=== PATIENT | male | born 1945 | race Caucasian/White ===

== ENCOUNTER → 2020-10-29 | Outpatient (CLI) | payer MEDICARE, BC ==
[~2020-10-29] MED LIST: CEPH500 PO; HYDACE10B PO
[2020-10-29 16:57] LABS: CHOL/HDL RATIO 3.5; Cholesterol 201 mg/dL (50-200); Free Thyroxine 1.12 ng/dL (0.70-1.60); HDL Cholesterol 57 mg/dL (>39); LDL/HDL RATIO 2.1; Low Density Lipoprotein Chol 119 mg/dL (0-110); Triglycerides 127 mg/dL (30-160); Very Low Density Lipoprot Chol 25 mg/dL (6-32)
== END ==
LOC: LAB SHORT 13:44
PROVIDERS: Hospitalist
DX: Z12.5 Encounter for screening for malignant neoplasm of prostate (principal); E03.9 Hypothyroidism, unspecified; I10 Essential (primary) hypertension
CPT/HCPCS: 80061; 84439; 84443; G0103

== ENCOUNTER → 2021-11-25 | Outpatient (CLI) | payer MEDICARE, BC ==
[2021-11-25 16:52] LABS: BASOPHILS ABSOLUTE AUTO 0.11 K/mm3 (0.00-0.23); BASOPHILS PERCENT AUTO 2 % (0-2); EOSINOPHILS ABSOLUTE AUTO 0.31 K/mm3 (0.00-0.68); EOSINOPHILS PERCENT AUTO 4 % (0-6); Hematocrit 44.5 % (37.0-53.0); Hemoglobin 15.5 g/dL (13.5-17.5); IMMATURE GRAN ABSOLUTE AUTO 0.07 K/mm3 (0.00-0.10); IMMATURE GRAN PERCENT AUTO 1 % (0-1); LYMPHOCYTES ABSOLUTE AUTO 2.53 K/mm3 (0.84-5.20); LYMPHOCYTES PERCENT AUTO 35 % (21-46); MONOCYTES ABSOLUTE AUTO 0.62 K/mm3 (0.16-1.47); MONOCYTES PERCENT AUTO 9 % (4-13); Mean Corpuscular HGB 31.7 pg (26.0-34.0); Mean Corpuscular HGB Conc 34.8 g/dL (31.5-36.5); Mean Corpuscular Volume 91 fL (80-100); Mean Platelet Volume 10.1 fL (9.1-12.4); NEUTROPHILS ABSOLUTE AUTO 3.68 K/mm3 (1.96-9.15); NEUTROPHILS PERCENT AUTO 50 % (41-73); Platelet Count 290 K/mm3 (150-400); RDW Coefficient Variation 12.6 % (11.7-14.2); RDW Standard Deviation 41.5 fL (35.1-46.3); Red Blood Cell Count 4.89 M/mm3 (4.30-5.90); White Blood Cell Count 7.32 K/mm3 (4.00-11.30)
[2021-11-25 19:40] LABS: Alanine Aminotransfer (ALT/SGP 38 U/L (12-78); Albumin, Blood 3.5 g/dL (3.4-5.0); Albumin/Globulin Ratio 1.1 (0.8-1.8); Alk Phos 75 U/L (50-136); Anion Gap 3 mmol/L (6-16); Aspartate Aminotrans (AST/SGOT 22 U/L (12-37); Bilirubin, Total 0.7 mg/dL (0.1-1.0); Blood Urea Nitrogen 17 mg/dL (8-24); Bun/Creatinine Ratio 16.2 (12.0-20.0); CHOL/HDL RATIO 3.7; CO2, Blood 28 mmol/L (21-32); Calcium, Blood 8.6 mg/dL (8.5-10.1); Chloride, Blood 106 mmol/L (98-108); Cholesterol 224 mg/dL (50-200); Creatinine, Blood 1.05 mg/dL (0.60-1.20); Globulin, Blood 3.3 g/dL (2.2-4.0); Glomerular Filtration Rate >60 (60-); Glucose, Blood 148 mg/dL (70-99); HDL Cholesterol 61 mg/dL (>39); LDL/HDL RATIO 2.3; Low Density Lipoprotein Chol 138 mg/dL (0-110); Potassium, Blood 4.4 mmol/L (3.5-5.5); Sodium, Blood 137 mmol/L (136-145); Total Protein, Blood 6.8 g/dL (6.4-8.2); Triglycerides 125 mg/dL (30-160); Very Low Density Lipoprot Chol 25 mg/dL (6-32)
[2021-11-25 19:42] LABS: Free Thyroxine 1.05 ng/dL (0.70-1.60); Triiodothyronine, Free 2.74 pg/mL (2.18-3.98)
== END | disposition home or self-care (01) ==
LOC: LAB SHORT 15:16
PROVIDERS: Hospitalist
DX: Z12.5 Encounter for screening for malignant neoplasm of prostate (principal); E03.9 Hypothyroidism, unspecified; I10 Essential (primary) hypertension
CPT/HCPCS: 80053; 80061; 84439; 84443; 84481; 85025; G0103

== ENCOUNTER 2022-10-09 15:15 | Emergency (ER) | payer MEDICARE, BC ==
[~2022-10-09] VITALS: Ht 170.2 cm; Wt 99.8 kg
[2022-10-09 15:57] LABS: BASOPHILS ABSOLUTE AUTO 0.06 K/mm3 (0.00-0.23); BASOPHILS PERCENT AUTO 0 % (0-2); EOSINOPHILS ABSOLUTE AUTO 0.11 K/mm3 (0.00-0.68); EOSINOPHILS PERCENT AUTO 1 % (0-6); Hematocrit 41.7 % (37.0-53.0); Hemoglobin 15.2 g/dL (13.5-17.5); IMMATURE GRAN ABSOLUTE AUTO 0.08 K/mm3 (0.00-0.10); IMMATURE GRAN PERCENT AUTO 1 % (0-1); LYMPHOCYTES ABSOLUTE AUTO 2.38 K/mm3 (0.84-5.20); LYMPHOCYTES PERCENT AUTO 16 % (21-46); MONOCYTES ABSOLUTE AUTO 1.18 K/mm3 (0.16-1.47); MONOCYTES PERCENT AUTO 8 % (4-13); Mean Corpuscular HGB 31.7 pg (26.0-34.0); Mean Corpuscular HGB Conc 36.5 g/dL (31.5-36.5); Mean Corpuscular Volume 87 fL (80-100); Mean Platelet Volume 9.5 fL (9.1-12.4); NEUTROPHILS ABSOLUTE AUTO 10.72 K/mm3 (1.96-9.15); NEUTROPHILS PERCENT AUTO 74 % (41-73); Platelet Count 307 K/mm3 (150-400); RDW Coefficient Variation 12.4 % (11.7-14.2); RDW Standard Deviation 39.4 fL (35.1-46.3); White Blood Cell Count 14.53 K/mm3 (4.00-11.30)
[2022-10-09 16:19] LABS: Albumin, Blood 3.3 g/dL (3.4-5.0); Albumin/Globulin Ratio 0.7 (0.8-1.8); Bilirubin, Total 0.8 mg/dL (0.1-1.0); Bun/Creatinine Ratio 27.7 (12.0-20.0); Calcium, Blood 8.6 mg/dL (8.5-10.1); Creatinine, Blood 0.79 mg/dL (0.60-1.20); Globulin, Blood 4.5 g/dL (2.2-4.0); Total Protein, Blood 7.8 g/dL (6.4-8.2)
[2022-10-09] MEDS ORDERED: ELIQUIS5 M3 PO (16:22)
[2022-10-09] MEDS ORDERED: SYNTHROID50 MC1 PO (16:22)
[2022-10-09] MEDS ORDERED: DILTIAZEM 24HR180 M3 PO (16:23)
== END 2022-10-09 18:30 | disposition home or self-care (01) ==
LOC: ER 15:15
PROVIDERS: Physician Assistant
DX: R07.9 Chest pain, unspecified (principal); R00.2 Palpitations; I48.91 Unspecified atrial fibrillation; D72.829 Elevated white blood cell count, unspecified; I48.92 Unspecified atrial flutter; E03.9 Hypothyroidism, unspecified; J45.909 Unspecified asthma, uncomplicated; Z79.01 Long term (current) use of anticoagulants; Z79.899 Other long term (current) drug therapy; Z87.891 Personal history of nicotine dependence
CPT/HCPCS: 71045; 80053; 83690; 83880; 84484; 85025

== ENCOUNTER → 2023-01-19 | Outpatient (CLI) | payer MEDICARE, BC ==
[~2023-01-19] MED LIST changes: +DILTIAZEM 24HR180 M3 PO; +ELIQUIS5 M3 PO; +SYNTHROID50 MC1 PO
[2023-01-19 14:51] LABS: BASOPHILS ABSOLUTE AUTO 0.11 K/mm3 (0.00-0.23); BASOPHILS PERCENT AUTO 1 % (0-2); EOSINOPHILS ABSOLUTE AUTO 0.34 K/mm3 (0.00-0.68); EOSINOPHILS PERCENT AUTO 3 % (0-6); Hematocrit 40.3 % (37.0-53.0); Hemoglobin 14.6 g/dL (13.5-17.5); IMMATURE GRAN ABSOLUTE AUTO 0.07 K/mm3 (0.00-0.10); IMMATURE GRAN PERCENT AUTO 1 % (0-1); LYMPHOCYTES ABSOLUTE AUTO 2.13 K/mm3 (0.84-5.20); LYMPHOCYTES PERCENT AUTO 21 % (21-46); MONOCYTES ABSOLUTE AUTO 1.03 K/mm3 (0.16-1.47); MONOCYTES PERCENT AUTO 10 % (4-13); Mean Corpuscular HGB 31.8 pg (26.0-34.0); Mean Corpuscular HGB Conc 36.2 g/dL (31.5-36.5); Mean Corpuscular Volume 88 fL (80-100); NEUTROPHILS ABSOLUTE AUTO 6.49 K/mm3 (1.96-9.15); NEUTROPHILS PERCENT AUTO 64 % (41-73); Platelet Count 361 K/mm3 (150-400); RDW Coefficient Variation 12.1 % (11.7-14.2); Red Blood Cell Count 4.59 M/mm3 (4.30-5.90); White Blood Cell Count 10.17 K/mm3 (4.00-11.30)
[2023-01-19 15:21] LABS: Free Thyroxine 1.24 ng/dL (0.70-1.60)
[2023-01-19 15:27] LABS: Albumin, Blood 3.2 g/dL (3.4-5.0); Albumin/Globulin Ratio 0.9 (0.8-1.8); Bilirubin, Total 0.7 mg/dL (0.1-1.0); Bun/Creatinine Ratio 16.2 (12.0-20.0); Calcium, Blood 8.6 mg/dL (8.5-10.1); Creatinine, Blood 0.86 mg/dL (0.60-1.20); Globulin, Blood 3.6 g/dL (2.2-4.0); Potassium, Blood 4.4 mmol/L (3.5-5.5); Thyroid Stimulating Hormone 3.03 uIU/mL (0.360-4.800); Total Protein, Blood 6.8 g/dL (6.4-8.2); Triiodothyronine, Free 2.5 pg/mL (2.18-3.98)
== END | disposition home or self-care (01) ==
LOC: LAB 10:05 → LAB SHORT 10:05
PROVIDERS: Hospitalist
DX: E03.9 Hypothyroidism, unspecified (principal); I10 Essential (primary) hypertension; R73.9 Hyperglycemia, unspecified
CPT/HCPCS: 80053; 83036; 84439; 84443; 84481; 85025

== ENCOUNTER → 2024-07-15 | Outpatient (CLI) | payer MEDICARE, BC | END | disposition home or self-care (01) | LOC: LAB SHORT 18:04 → LAB 18:04 | DX: R73.9 Hyperglycemia, unspecified (principal) | CPT/HCPCS: 83036 ==

== ENCOUNTER → 2024-11-18 | Outpatient (CLI) | payer MEDICARE, BC ==
[2024-11-18 20:02] LABS: Bun/Creatinine Ratio 16.9 (12.0-20.0); Calcium, Blood 9.3 mg/dL (8.5-10.1); Creatinine, Blood 0.83 mg/dL (0.60-1.20); Free Thyroxine 1.34 ng/dL (0.70-1.60); Potassium, Blood 4.1 mmol/L (3.5-5.5); Thyroid Stimulating Hormone 2.24 uIU/mL (0.360-4.800)
== END ==
LOC: LAB 19:12 → LAB SHORT 19:12
PROVIDERS: Hospitalist
DX: I10 Essential (primary) hypertension (principal); E03.9 Hypothyroidism, unspecified
CPT/HCPCS: 80048; 84439; 84443

== ENCOUNTER 2025-06-03 23:54 | Inpatient (IN) | payer MEDICARE, BC ==
[~2025-06-03] VITALS: Ht 170.2 cm; Wt 96.4 kg
[~2025-06-03 23:54] MED LIST changes: -DILTIAZEM 24HR180 M3 PO; +DILTIAZEM 24HR240 M3 PO
[2025-06-04 00:21] LABS: BASOPHILS ABSOLUTE AUTO 0.09 K/mm3 (0.00-0.23); BASOPHILS PERCENT AUTO 1 % (0-2); EOSINOPHILS ABSOLUTE AUTO 0.35 K/mm3 (0.00-0.68); EOSINOPHILS PERCENT AUTO 4 % (0-6); Hematocrit 42.3 % (37.0-53.0); Hemoglobin 15.1 g/dL (13.5-17.5); IMMATURE GRAN ABSOLUTE AUTO 0.08 K/mm3 (0.00-0.10); IMMATURE GRAN PERCENT AUTO 1 % (0-1); LYMPHOCYTES ABSOLUTE AUTO 3.59 K/mm3 (0.84-5.20); LYMPHOCYTES PERCENT AUTO 35 % (21-46); MONOCYTES ABSOLUTE AUTO 0.91 K/mm3 (0.16-1.47); MONOCYTES PERCENT AUTO 9 % (4-13); Mean Corpuscular HGB Conc 35.7 g/dL (31.5-36.5); Mean Corpuscular Volume 89 fL (80-100); NEUTROPHILS ABSOLUTE AUTO 5.11 K/mm3 (1.96-9.15); NEUTROPHILS PERCENT AUTO 50 % (41-73); NRBC ABSOLUTE 0.00 K/mm3 (0.00-0.02); NRBC Auto 0.0 /100 WBC (0.0-0.2); Platelet Count 317 K/mm3 (150-400); RDW Coefficient Variation 13.2 % (11.7-14.2); RDW Standard Deviation 43.6 fL (35.1-46.3)
[2025-06-04 00:34] LABS: Alanine Aminotransfer (ALT/SGP 24.0 U/L (12-78); Albumin, Blood 3.4 g/dL (3.4-5.0); Albumin/Globulin Ratio 0.7 (0.8-1.8); Anion Gap 9.0 mmol/L (3-11); Aspartate Aminotrans (AST/SGOT 21.0 U/L (12-37); Bilirubin, Total 0.6 mg/dL (0.1-1.0); Blood Urea Nitrogen 18.0 mg/dL (8-24); CO2, Blood 28.0 mmol/L (21-32); Calcium, Blood 8.4 mg/dL (8.5-10.1); Chloride, Blood 104.0 mmol/L (98-108); Creatinine, Blood 1.01 mg/dL (0.60-1.20); Globulin, Blood 4.7 g/dL (2.2-4.0); Glucose, Blood 136.0 mg/dL (70-99); Magnesium, Blood 1.6 mg/dL (1.6-2.4); Potassium, Blood 3.5 mmol/L (3.5-5.5); Sodium, Blood 137.0 mmol/L (136-145); Total Protein, Blood 8.1 g/dL (6.4-8.2)
[2025-06-04] MEDS ORDERED: ACET500 PO (02:02)
[2025-06-04] MEDS ORDERED: FentaNYL Citrate 50 MCG/ML 2 ML Injection IV PRN ×2 (03:30→04:20)
[2025-06-04] MEDS ORDERED: Naloxone HCl 0.4MG / ML 1ML Vial IV PRN (04:15)
[2025-06-04] MEDS ORDERED: Ondansetron HCl 2 MG / ML 2ML Vial IV PRN (04:15)
[2025-06-04] MEDS ORDERED: Ketorolac Tromethamine 15mg Vial IV PRN (04:30)
[2025-06-04 05:09] VITALS: BP 165/92
[2025-06-04] MEDS ORDERED: HYDCHL25 PO (05:18)
[2025-06-04 05:41] LABS: BASOPHILS ABSOLUTE AUTO 0.05 K/mm3 (0.00-0.23); BASOPHILS PERCENT AUTO 1 % (0-2); EOSINOPHILS ABSOLUTE AUTO 0.01 K/mm3 (0.00-0.68); EOSINOPHILS PERCENT AUTO 0 % (0-6); Hematocrit 41.2 % (37.0-53.0); Hemoglobin 14.7 g/dL (13.5-17.5); IMMATURE GRAN ABSOLUTE AUTO 0.07 K/mm3 (0.00-0.10); IMMATURE GRAN PERCENT AUTO 1 % (0-1); LYMPHOCYTES ABSOLUTE AUTO 1.05 K/mm3 (0.84-5.20); LYMPHOCYTES PERCENT AUTO 10 % (21-46); MONOCYTES ABSOLUTE AUTO 0.34 K/mm3 (0.16-1.47); MONOCYTES PERCENT AUTO 3 % (4-13); Mean Corpuscular HGB Conc 35.7 g/dL (31.5-36.5); Mean Corpuscular Volume 90 fL (80-100); NEUTROPHILS ABSOLUTE AUTO 8.90 K/mm3 (1.96-9.15); NEUTROPHILS PERCENT AUTO 85 % (41-73); NRBC ABSOLUTE 0.00 K/mm3 (0.00-0.02); NRBC Auto 0.0 /100 WBC (0.0-0.2); Platelet Count 271 K/mm3 (150-400); RDW Coefficient Variation 13.5 % (11.7-14.2); RDW Standard Deviation 44.1 fL (35.1-46.3)
--- NOTE | 2025-06-04 05:52 | NUR ---
SHIFT SUMMARY: PT IS AOX4. INDEPENDENT IN ROOM. MILD/MODERATE PAIN TO UPPER ABDOMEN, MEDICATED PER eMAR. PT IS NPO, ANTICIPATING POSSIBLE MRCP. CALL LIGHT IS WITHIN REACH. BED IS LOW AND LOCKED.
[2025-06-04 06:09] LABS: Alanine Aminotransfer (ALT/SGP 24.0 U/L (12-78); Albumin, Blood 3.3 g/dL (3.4-5.0); Albumin/Globulin Ratio 0.7 (0.8-1.8); Anion Gap 9.0 mmol/L (3-11); Aspartate Aminotrans (AST/SGOT 20.0 U/L (12-37); Bilirubin, Total 0.5 mg/dL (0.1-1.0); Blood Urea Nitrogen 18.0 mg/dL (8-24); CO2, Blood 27.0 mmol/L (21-32); Calcium, Blood 8.4 mg/dL (8.5-10.1); Chloride, Blood 103.0 mmol/L (98-108); Creatinine, Blood 0.96 mg/dL (0.60-1.20); Globulin, Blood 4.6 g/dL (2.2-4.0); Glucose, Blood 184.0 mg/dL (70-99); Magnesium, Blood 1.8 mg/dL (1.6-2.4); Potassium, Blood 3.7 mmol/L (3.5-5.5); Sodium, Blood 135.0 mmol/L (136-145); Total Protein, Blood 7.9 g/dL (6.4-8.2)
[2025-06-04 07:56] VITALS: BP 149/86
[2025-06-04] MEDS ORDERED: Ciprofloxacin 400MG/D5 200ML 200 ML IV SCH (11:30)
--- NOTE | 2025-06-04 11:34 | NUR ---
TELE CALLED AT 1130 REPORTING A 3.78 SECOND PAUSE. PATIENT CHECKED ON AND WAS SITTING UP IN BED VISITING WITH FAMILY. PATIENT REPORTS "I'M OKAY." CALL MADE TO DR. TABARES AND NOTIFIED.
[2025-06-04] MEDS ORDERED: MetroNIDAZOLE 500MG/NS 100 ml 100 ML IV SCH ×2 (12:00→21:00)
[2025-06-04] MEDS ORDERED: LevoFLOXacin 750 MG/D5W 150ML 150 ML IV SCH (12:00)
[2025-06-04 12:08] VITALS: BP 139/84
--- NOTE | 2025-06-04 12:24 | NUR ---
TELE CALLED REPORTING THAT PATIENT DIPPED INTO THE MID 30'S FOR [address] TABARES NOTIFIED.
[2025-06-04] MEDS ORDERED: NS 250 ML IV PRN (12:30)
--- NOTE | 2025-06-04 15:39 | NUR ---
DR. TABARES NOTIFIED OF TELE CALLING AND REPORTING PATIENT CONTINUING TO BE MARISELA IN THE 30'S SUSTAINING 3-5 SECONDS.
[2025-06-04 16:06] VITALS: BP 145/94
--- NOTE | 2025-06-04 17:08 | NUR ---
SHIFT SUMMARY: PATIENT IS A&OX4/INDEPENDENT, AWAITING PROCEDURE FOR TOMORROW AFTER ALOTTED TIME OF ELIQUIS HAS BEEN HELD. OTHERWISE NO SIGNS OR SYMPTOMS THROUGHOUT THE SHIFT. TOLERATING CLEAR LIQUID DIET. COMPLETED BOTH IV ANTIBIOTICS TODAY AND TOLERATED WELL TOO. HE IS IN BED, ALERT, NO SIGNS OR SYMPTOMS OF DISTRESS, CALL LIGHT WITHIN REACH, PLAN OF CARE ONGOING. SEE NURSE NOTES ON TELE CALLS.
[2025-06-04] MEDS ORDERED: CefTRIAXone Sodium 2,000 MG in NS 100 ML IV SCH (19:00)
[2025-06-04 19:52] VITALS: BP 169/86
[2025-06-05] VITALS (15 sets, daily range): BP systolic 103–161; BP diastolic 64–97
--- NOTE | 2025-06-05 03:35 | NUR ---
SHIFT SUMMARY PT ALERT ORIENTED ABLE TO VERBALIZE NEEDS GETS UP IN ROOM AD ARACELI. NO C/O PAIN OR N/V. HES BEEN NPO SINCE MIDNIGHT FOR A LAP MACK THIS AM. REMAINS ON FLAGYL AND LEVAQUIN ORDERED FOR CHOLECYSTITIS. HES JEHOVAH WITNESS SO NO BLOOD PRODUCTS. REMAINS WITH DEPENDENT EDEMA TO HIS BLE. HIS BP REMAINS SLIGHTLY ELEVATED AT 169 AND HR AT 56-64. REMAINS ON TELEMETRY AT AFIB AT 62. REMAINS ON RA SATTING AT 99%. ABD REMAINS SLIGHTLY DISTENDED AND TENDER TO TOUCH RESTING IN BED AT THIS TIME WITH CALL LIGHT IN REACH
[2025-06-05] MEDS ORDERED: Bupivacaine 0.5% HCl 5 MG/ML 30MLVIAL ONE (11:46)
--- NOTE | 2025-06-05 11:49 | NUR ---
History, Chart, Medications and Allergies reviewed before start of procedure. Pre-Op teaching done. Pt verbalizes understanding. Patient confirms NPO status and agrees with scheduled surgery. PT LEFT WEDDING RING AND GLASSES IN MED FLOOR ROOM. PT FRIEND, FAITH, AT BS. PT EXPLAINED HIS WISHES TO ANES IN REGARD TO WHAT HE CAN AND CAN'T RECIEVE D/T REGLIGIOUS PREFERENCES.
[2025-06-05] MEDS ORDERED: Ketorolac Tromethamine 30mg Vial ONE (12:54)
[2025-06-05] MEDS ORDERED: Ondansetron HCl 2 MG / ML 2ML Vial ONE (12:54)
[2025-06-05] MEDS ORDERED: Dexamethasone Sod Phos 10 MG/ML 1ML VIAL ONE (12:54)
[2025-06-05] MEDS ORDERED: HYDROmorphone HCl/Pf 1MG SYR ONE (12:55)
[2025-06-05] MEDS ORDERED: FentaNYL Citrate 50 MCG/ML 2 ML Injection ONE (12:55)
[2025-06-05] MEDS ORDERED: Sugammadex Sodium 200 MG/2ML SDV (100 MG/ML) ONE (12:55)
[2025-06-05] MEDS ORDERED: Rocuronium Bromide 10 MG/ML 5ML Injection IV ONE (12:59)
[2025-06-05] MEDS ORDERED: HYDROmorphone HCl/Pf 1MG SYR IV PRN ×2 (13:50)
[2025-06-05] MEDS ORDERED: FentaNYL Citrate 50 MCG/ML 2 ML Injection IV PRN ×2 (13:55)
[2025-06-05] MEDS ORDERED: Labetalol HCL 5 MG/ML 4ML Injection (Single Dose) IV PRN (13:55)
[2025-06-05] MEDS ORDERED: Ondansetron HCl 2 MG / ML 2ML Vial IV PRN (13:55)
[2025-06-05] MEDS ORDERED: HYDROcodone 5-APAP 325 TAB PO PRN (14:25)
--- NOTE | 2025-06-05 17:07 | NUR ---
SHIFT SUMMARY: PATIENT HAD HIS LAP MACK. EARLY AFTERNOON. RETURNED FROM SURGERY AROUND 1500. PATIENT ALERT, DENIES PAIN, AND VITALS ARE STABLE. NO COMPLAINTS OR SIGNS OR SYMPTOMS OF DISTRESS. ABD SITES INTACT; NO DRAINAGE. NO TELE EVENTS THIS SHIFT. HE IS TOLERATING PO INTAKE. PATIENT REPORTS URGE TO VOID, BUT HAS YET TO VOID, BUT STATES HE WILL ATTEMPT AND REPORT BACK. PATIENT IN BED, TALKING ON THE PHONE, CALL LIGHT WITHIN, NO SIGNS OR SYMPTOMS OF DISTRESS, PLAN OF CARE ONGOING.
[2025-06-05] MEDS ORDERED: COLCHICINE0.6 MG PO (18:04)
[2025-06-05] MEDS ORDERED: ALLO100 PO (18:06)
[2025-06-06 00:20] VITALS: BP 150/93
[2025-06-06 04:45] LABS: BASOPHILS ABSOLUTE AUTO 0.00 K/mm3 (0.00-0.23); BASOPHILS PERCENT AUTO 0 % (0-2); EOSINOPHILS ABSOLUTE AUTO 0.00 K/mm3 (0.00-0.68); EOSINOPHILS PERCENT AUTO 0 % (0-6); Hematocrit 39.9 % (37.0-53.0); Hemoglobin 14.3 g/dL (13.5-17.5); IMMATURE GRAN ABSOLUTE AUTO 0.06 K/mm3 (0.00-0.10); IMMATURE GRAN PERCENT AUTO 1 % (0-1); LYMPHOCYTES ABSOLUTE AUTO 0.91 K/mm3 (0.84-5.20); LYMPHOCYTES PERCENT AUTO 9 % (21-46); MONOCYTES ABSOLUTE AUTO 0.24 K/mm3 (0.16-1.47); MONOCYTES PERCENT AUTO 2 % (4-13); Mean Corpuscular HGB Conc 35.8 g/dL (31.5-36.5); Mean Corpuscular Volume 88 fL (80-100); NEUTROPHILS ABSOLUTE AUTO 9.14 K/mm3 (1.96-9.15); NEUTROPHILS PERCENT AUTO 88 % (41-73); NRBC ABSOLUTE 0.00 K/mm3 (0.00-0.02); NRBC Auto 0.0 /100 WBC (0.0-0.2); Platelet Count 278 K/mm3 (150-400); RDW Coefficient Variation 12.9 % (11.7-14.2); RDW Standard Deviation 41.9 fL (35.1-46.3)
[2025-06-06 04:55] VITALS: BP 161/99
[2025-06-06 05:05] LABS: Anion Gap 8.0 mmol/L (3-11); Blood Urea Nitrogen 17.0 mg/dL (8-24); CO2, Blood 26.0 mmol/L (21-32); Calcium, Blood 8.1 mg/dL (8.5-10.1); Chloride, Blood 104.0 mmol/L (98-108); Creatinine, Blood 0.88 mg/dL (0.60-1.20); Glucose, Blood 182.0 mg/dL (70-99); Potassium, Blood 4.1 mmol/L (3.5-5.5); Sodium, Blood 134.0 mmol/L (136-145)
--- NOTE | 2025-06-06 06:51 | NUR ---
SHIFT SUMMARY PT ALERT ORIENTED ABLE TO VERBALIZE NEEDS GETS UP IN ROOM AD ARACELI AND AMBULATES TO THE BATHROOM. HE HAD A LAP MACK DONE YESTERDAY AND HAS 3 LAP SITES WITH STERI STRIPS. SITES ALL LOOK GOOD WITH NO REDNESS OR DRAINAGE TO AREAS. NO C/O PAIN. DID STATE THERE A LITTLE SORE BUT NO PAIN. HIS BP HAS BEEN RUNNING SLIGHTLY HIGH AT 161/99. REMAINS ON TELEMETRY AT A FLUTTER AT 101. REMAINS ON FLAGYL Q8HR AND LEVAQUIN QDAY. HES SCHEDULED TO BE DCED TODAY. RESTING IN BED AT THIS TIME WITH CALL LIGHT .
[2025-06-06 07:38] VITALS: BP 156/105
[2025-06-06] MEDS ORDERED: Diltiazem HCl 180 MG Cap.CD PO SCH (09:00)
[2025-06-06 10:12] VITALS: BP 151/100
[2025-06-06 11:51] VITALS: BP 161/101
[2025-06-06] MEDS ORDERED: DILT180 PO (15:55)
[2025-06-06] MEDS ORDERED: Acetaminophen650 M1 PO (15:55)
[2025-06-06 16:10] VITALS: BP 142/87
--- NOTE | 2025-06-06 17:08 | NUR ---
DISCHARGE NOTE- PT WAS GIVEN VERBAL AND WRITTEN DISCHARGE INSTRUCTIONS AND ACKNOWLEDGED UNDERSTANDING OF THEM. IV AND TELE WERE DC'D AND THE PT GOT HIMSELF READY TO GO. THE PT INSISTED ON USING THE [facility] ORDER [facility]. UNABLE TO FAX TO THEM THIS RN COTACTED HIS PCPS OFFICE THEY ACCEPTED THE FAXED MED LIST AND GOT THE SCRIPT TO [facility]. INFORMED THE OFFICE OF HIS IMINENT DISCHARGE AND NEED FOR FOLLOW UP WELL FOLLOW UP CT CHEST. THEY ARE AWARE. SPOKE TO DR TABARES AFTER DC PAPERS WERE COMPLETED, HE DID NOT INCLUDE A FOLLOW UP WITH DR BHATT, HOWEVER DR BHATT STATED IN HIS NOTE TO FOLLOW UP OUT PT IN 2 WEEKS. THIS WAS INCLUDED IN THE PT DC PACKET. DR TABARES IS AWARE AND AGREED WITH ALL THREE FOLLOW UPS.
== END 2025-06-06 16:48 | disposition home or self-care (01) | DRG 419 ==
LOC: ER 23:54 → MEDS 23:55
PROVIDERS: Emergency Medicine; Surgery; ADMIT Student in an Organized Health Care Education/Training Program
PROC: 3E03329 Introduction of Other Anti-infective into Peripheral Vein, Percutaneous Approach (ICD-10-PCS; 2025-06-05)
PROC: 0FT44ZZ Resection of Gallbladder, Percutaneous Endoscopic Approach (ICD-10-PCS; principal; 2025-06-05 12:30)
DX: K80.00 Calculus of gallbladder with acute cholecystitis without obstruction (principal); I48.91 Unspecified atrial fibrillation; J45.909 Unspecified asthma, uncomplicated; E03.9 Hypothyroidism, unspecified; R73.9 Hyperglycemia, unspecified; R91.1 Solitary pulmonary nodule; R07.89 Other chest pain; R00.1 Bradycardia, unspecified; T46.1X5A Adverse effect of calcium-channel blockers, initial encounter; Z90.49 Acquired absence of other specified parts of digestive tract; Z87.891 Personal history of nicotine dependence; Z79.890 Hormone replacement therapy; Z79.01 Long term (current) use of anticoagulants; Z79.899 Other long term (current) drug therapy
CPT/HCPCS: 36415; 71045; 74177; 74300; 76705; 80048; 80053; 83735; 84443; 84484; 85025; 93005; 93010; 96365; 96368; 96374-59; 96375; 96375-59; 96376; 99285; A9270; G0378; J1100; J1171; J1885; J1956; J2405; J2704; J3010; J7050; J7120; Q9967